=== PATIENT | female | born 1955 ===

== ENCOUNTER 2020-11-05 17:04 | Outpatient (CLI) | payer OTHER, MEDICARE | END 2020-11-05 17:05 | disposition home or self-care (01) | LOC: COV 17:04 | PROVIDERS: ATTEND Family Medicine | DX: Z20.822 Contact with and (suspected) exposure to COVID-19 (principal) ==

== ENCOUNTER 2021-04-01 08:00 | Outpatient (CLI) | payer OTHER, MEDICARE | END 2021-04-01 23:59 | LOC: LAB 08:00 | PROVIDERS: ATTEND Family Medicine | DX: R43.8 Other disturbances of smell and taste (principal); Z20.822 Contact with and (suspected) exposure to COVID-19 ==